=== PATIENT | female | born 1955 | race Two or more races ===

== ENCOUNTER 2016-12-01 13:03 | Day surgery (SDC) | payer OTHER ==
[~2016-12-01] VITALS: Ht 162.6 cm; Wt 77.5 kg
[~2016-12-01 13:03] MED LIST: ADVAIR DISKUS; ASPI81TA3 GTB; ATEN-51 PO; COLS GTB; DICL50TA11 PO; ESOM20CA PO; HYDR25TA6 PO; MONT10TA24 PO; SENNA; [UNRECOGNIZED DRUG - CODE] PO
[2016-12-01 13:25] VITALS: Ht 162.6 cm; Wt 77.5 kg
[2016-12-01] MEDS ORDERED: MONT4TAB8 PO (13:33)
[2016-12-01 14:02] VITALS: BP 132/74; PULSE 73; RESP 18
[2016-12-01] MEDS ORDERED: PROPOFOL 20 ML ONE (15:27)
[2016-12-01] MEDS ORDERED: MIDAZOLAM 1 MG/ML 2 ML INJ ONE (15:28)
--- NOTE | 2016-12-01 16:00 | OPPN ---
Date/Time of Note Date/Time of Note DATE: 12/01/16 TIME: 15:58 Operative Report Preoperative Diagnosis Rectal bleeding Change in bowel habits Postoperative Diagnosis Cecal polyp was removed Internal hemorrhoids Operation/Procedure Performed Colonoscopy and biopsy Provider: MAURICIO WRIGHT MD Anesthesia Type: MAC Estimated blood loss: none Transfusion Required: no Specimens Cecal polyp Grafts/Implants: none Complications: no MAURICIO WRIGHT MD Dec 01, 2016 16:00
[2016-12-01 16:25] VITALS: BP 135/78; PULSE 76; RESP 24
--- NOTE | 2016-12-01 16:56 | GILP ---
DATE OF PROCEDURE: 12/01/2016 PROCEDURE PERFORMED: Colonoscopy and biopsy. SURGEON: Dago Bauman MD. PREOPERATIVE DIAGNOSES: 1. Rectal bleeding. 2. Change in bowel habits. POSTOPERATIVE DIAGNOSES: 1. Colonoscopy all the way to the cecum. 2. Small cecal polyp was removed using the biopsy forceps. 3. Internal hemorrhoids. INDICATION: Ms. Latrice Echevarria is a 61-year-old female patient who had rectal bleeding and change in the bowel habits. The patient was scheduled for colonoscopy for further evaluation. The procedure and possible complications were well explained to the patient. The patient understood and consented to the procedure. DESCRIPTION OF PROCEDURE: Under influence of anesthesia, the colonoscope was carefully introduced in the rectum. Under direct vision it was advanced all the way to the cecum. FINDINGS: The patient had a small cecal polyp and it was removed using the biopsy forceps. She was noted to have internal hemorrhoids. She tolerated the procedure very well. There was no complication from the procedure. At the end of procedure, she was awake with stable vital signs and she was discharged home in care of her family. IMPRESSION: Please see postop diagnoses. PLAN: Next screening colonoscopy in 10 years. Dictated By: MD BROOKE Lamb/french/mary /Document#: [id number]
== END 2016-12-01 17:41 | disposition home or self-care (01) ==
LOC: GIL 13:03
PROVIDERS: ATTEND Internal Medicine Gastroenterology
DX: D12.0 Benign neoplasm of cecum (principal); K64.8 Other hemorrhoids; I10 Essential (primary) hypertension; J45.909 Unspecified asthma, uncomplicated
CPT/HCPCS: 45380; 88305; J2250; Z7610

== ENCOUNTER 2018-09-24 11:00 | Day surgery (SDC) | payer MEDICARE, OTHER ==
[~2018-09-24] VITALS: Ht 162.6 cm; Wt 85.7 kg
[2018-09-24] VITALS (10 sets, daily range): BP systolic 119–161; BP diastolic 56–75; PULSE 55–66; RESP 14–19; Ht 162.6 cm; Wt 85.7 kg
[~2018-09-24 11:00] MED LIST changes: -ASPI81TA3 GTB; +CEFAZOLIN 2 GM/50 ML (PMX) 50 ML IVPB SCH; -COLS GTB; -DICL50TA11 PO; -MONT10TA24 PO; +MONT4TAB8 PO; -[UNRECOGNIZED DRUG - CODE] PO
[2018-09-24] MEDS ORDERED: SYMB80120 INHALATION (11:49)
[2018-09-24] MEDS ORDERED: CHOL100062 PO (11:49)
[2018-09-24] MEDS ORDERED: VILA20TA PO (11:49)
[2018-09-24] MEDS ORDERED: ALBU18HF INHALATION (11:49)
[2018-09-24] MEDS ORDERED: GABA300C16 PO (11:49)
[2018-09-24] MEDS ORDERED: BISA5TAB6 PO (11:49)
[2018-09-24] MEDS ORDERED: ASPI-817 PO (11:49)
[2018-09-24] MEDS ORDERED: ARIP5TAB14 PO (11:49)
[2018-09-24] MEDS ORDERED: ARIP30TA4 PO (11:49)
[2018-09-24] MEDS ORDERED: SUMA100T4 PO (11:49)
[2018-09-24] MEDS ORDERED: MELO7.5O PO (11:49)
[2018-09-24] MEDS ORDERED: LACTATED RINGER'S 1,000 ML IV SCH ×2 (12:30→14:30)
[2018-09-24] MEDS ORDERED: MIDAZOLAM 1 MG/ML 2 ML INJ ONE (12:51)
[2018-09-24] MEDS ORDERED: PROPOFOL 20 ML ONE (12:51)
[2018-09-24] MEDS ORDERED: LIDOCAINE 2% (SDV) 5 ML INJ ONE (12:51)
[2018-09-24] MEDS ORDERED: FENTAnyl 50 MCG/ML VIAL ONE (12:51)
[2018-09-24] MEDS ORDERED: LIDOCAINE 1%/EPI 30 ML INJ ONE (13:01)
--- NOTE | 2018-09-24 13:12 | PREAC ---
Date/Time of Note Date/Time of Note DATE: 09/24/18 TIME: 13:10 Anesthesia Eval and Record Evaluation Time Pre-Procedure Interview DATE: 09/24/18 TIME: 13:10 Age 63 Sex female NPO: 8 hrs Preoperative diagnosis right trigger finger Planned procedure right trigger finger release Past Medical History Past Medical History: Includes Cardio: HTN Pulm: Asthma (induced by URI and season changes) Neuro: Other (chronic back pain) GI: Obesity (bmi 32.4) Psych: Depression Surgery & Anesthesia Issues No known issue Meds Anticoagulation: No Beta Sydney within 24 hr: Yes Reported Medications Cholecalciferol* (Vitamin D3*) 1,000 Unit Tablet, 5000 UNIT PO WEEKLY, TAB 09/24/18 Aspirin* (Aspirin* EC) 81 Mg Tablet.dr, 81 MG PO DAILY, TAB 09/24/18 Bisacodyl* (Bisacodyl*) 5 Mg Tablet.dr, 5 MG PO DAILY, TAB 09/24/18 Meloxicam* (Meloxicam*) 7.5 Mg/5 Ml Oral.susp, 7.5 MG PO DAILY, #150 ML 09/24/18 Budesonide-Formoterol Fumarate* (Symbicort*) 80-4.5 Inha, 2 PUFFS INHALATION BID, #1 EACH 09/24/18 Albuterol Sulfate* (Ventolin HFA*) 18 Gm Hfa.aer.ad, 2 PUFF INHALATION Q6H, #1 INHALER 09/24/18 Sumatriptan Succinate* (Sumatriptan Succinate*) 100 Mg Tablet, 100 MG PO BID PRN for MIGRAINE HEADACHE, TAB May repeat after 2 hours if needed; MAX 200 mg/24 hours 09/24/18 Vilazodone Hcl (Viibryd) 20 Mg Tablet, 20 MG PO DAILY, TAB 09/24/18 Aripiprazole* (Abilify*) 5 Mg Tab, 5 MG PO DAILY, #30 TAB 09/24/18 Aripiprazole* (Abilify*) 30 Mg Tablet, 30 MG PO DAILY, #30 TAB 09/24/18 Gabapentin* (Gabapentin*) 300 Mg Capsule, 300 MG PO QHS, #60 CAP 09/24/18 Meloxicam* (Meloxicam*) 7.5 Mg/5 Ml Oral.susp, 15 MG PO DAILY, #300 ML 09/24/18 Montelukast Sodium* (Singulair*) 4 Mg Tab.chew, 4 MG PO QHS, #30 TAB 12/01/16 Hydrochlorothiazide (Hydrochlorothiazide) 25 Mg Tablet, 25 MG PO DAILY 08/13/12 Atenolol* (Atenolol*) 25 Mg Tablet, 25 MG PO DAILY 08/13/12 Discontinued Reported Medications [Advair Diskus] No Conflict Check, PRN 08/13/12 Esomeprazole Mag Trihydrate (Nexium) 20 Mg Capsule.dr, 20 MG PO AM 08/13/12 [Senna] No Conflict Check 12/15/09 Current Medications Cefazolin Sodium/ Dextrose 50 ml @ 100 mls/hr PRE-OP IVPB ; Start 09/24/18 at 07:00; Stop 09/24/18 at 19:00 Lactated Ringer's 1,000 ml @ 25 mls/hr Q24H IV ; Start 09/24/18 at 12:30 Meds reviewed: Yes Allergies Coded Allergies: No Known Allergies (Verified Allergy, Unknown, 09/24/18) Allergies Reviewed: Yes Labs/Studies Labs Reviewed: Reviewed by anesthesiologist Result Diagram: 09/24/18 1155 Laboratory Tests 09/24/18 11:55 test: N/A Studies: ECG Pre-procedure Exam Last vitals Vital Signs Date Temp Pulse Resp B/P (MAP) Pulse Ox O2 O2 Flow FiO2 Time Delivery Rate 09/24/18 97.5 66 16 124/74 98 Room Air 12:05 (91) Airway: Adequate mouth opening, Adequate thyromental dist Mallampati: Mallampati II Teeth: Normal (partials are out) Lung: Normal Heart: Normal ASA Physical Status ASA physical status: 2 Emergency: None Planned Anesthetic General/MAC: MAC, TIVA Planned Pain Management Parenteral pain med, Local by surgeon Pre-operative Attestations Prior to commencing anesthesia and surgery, the patient was re-evaluated, there was verification of: *The patient's identity *The results of appropriate recent lab work and preoperative vital signs *The above evaluation not changing prior to induction *Anesthetic plan, risk benefits, alternative and complications discussed with patient/family; questions answered; patient/family understands, accepts and wishes to proceed. KENYA FRANK Sep 24, 2018 13:12
[2018-09-24] MEDS ORDERED: LABETALOL HCL 20MG INJ IV PRN (13:30)
[2018-09-24] MEDS ORDERED: OXYCODONE/ACETAMINOPHEN (5/325) TAB PO PRN ×2 (13:30)
[2018-09-24] MEDS ORDERED: FENTAnyl 50 MCG/ML VIAL IV PRN ×3 (13:30)
[2018-09-24] MEDS ORDERED: ALBUTEROL 0.083% (NEB) 2.5 MG/3 ML AMP HHN PRN (13:30)
[2018-09-24] MEDS ORDERED: ONDANSETRON 4 MG INJ IV PRN (13:30)
[2018-09-24] MEDS ORDERED: MIDAZOLAM 1 MG/ML 2 ML INJ IV PRN (13:30)
[2018-09-24] MEDS ORDERED: hydrALAzine 20 MG INJ IV PRN (13:30)
[2018-09-24] MEDS ORDERED: LIDOCAINE 1% (MPF) 30 ML INJ ONE (13:41)
[2018-09-24] MEDS ORDERED: NEOMYC/POLYMYX/BACIT 30 GM OINT ONE (13:55)
[2018-09-24] MEDS ORDERED: CEFAZOLIN 1 GM INJ ONE (14:06)
--- NOTE | 2018-09-24 14:15 | OPR ---
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 She is indicated for surgery. She understands risks surgery which include but are not limited to those infection, pain, bleeding, neurovascular injury, stiffness, swelling, decreased range of motion, and other anesthesia related risks. She elects to proceed. Procedure Description Patient was identified in preoperative holding area. Upper extremity was marked. The patient was brought back to the operating room. Light IV sedation was administered. was administered. A nonsterile tourniquet was applied the arm. Timeout was performed indicating correct patient site and procedure. Local injection of combination of 1% lidocaine and 0.25% Marcaine plain was injected into the finger. The arm was then prepped and draped in usual sterile fashion. Arm was exsanguinated Esmarch and tourniquet was elevated to 250 minutes mercury. A slightly oblique incision was marked out over the A1 fiorella just distal to the distal palmar crease of the finger. Skin was incised sharply. Blunt dissection was performed down to the flexor tendon sheath. The neurovascular bundles were retracted and the A1 fiorella was exposed. The A1 fiorella was released in a proximal to distal fashion. The palmar fiorella was also released. The A2 fiorella was preserved distally. There was full passive flexion of the finger. Patient was instructed to flex and extend the finger and there was complete motion without triggering. The flexor tendons were also gently pulled out the wound and there was noted to be full unimpeded motion. The flexor tendons were noted to be intact. The tourniquet was released. Hemostasis was achieved with bipolar cautery. The wound was irrigated. Skin was closed with interrupted horizontal mattress 5-0 nylon suture. The wound was dressed with Adaptic, bacitracin, 4 x 4 gauze, Denise and Robin bandage. There is brisk capillary refill and all sponge and instrument counts were correct in case. The patient was awoken from anesthesia and taken to PACU stable condition. CARMELA ORLANDO MD Sep 24, 2018 14:15
--- NOTE | 2018-09-24 14:22 | PAC ---
Date/Time of Note Date/Time of Note DATE: 09/24/18 TIME: 14:21 Post-Anesthesia Notes Post-Anesthesia Note Last documented vital signs bp 124/74 hr 59 spo2 98% rr 16 temp 98.3 Vital Signs Date Temp Pulse Resp B/P (MAP) Pulse Ox O2 O2 Flow FiO2 Time Delivery Rate 09/24/18 97.5 66 16 124/74 98 Room Air 12:05 (91) Activity: WNL Respiratory function: WNL Cardiovascular function: WNL Mental status: Baseline Pain reasonably controlled: Yes Hydration appropriate: Yes Nausea/Vomiting absent: Yes KENYA FRANK Sep 24, 2018 14:22
== END 2018-09-24 15:56 | disposition home or self-care (01) ==
LOC: SDS 11:00
PROVIDERS: ATTEND Orthopaedic Surgery
DX: M65.341 Trigger finger, right ring finger (principal); I10 Essential (primary) hypertension; J45.909 Unspecified asthma, uncomplicated
CPT/HCPCS: 26055; 71045; 85025; 85610; 85730; 93005; J0690; J3010; J2250